=== PATIENT | female | born 1985 | race Hispanic/Latino ===

== ENCOUNTER 2019-02-07 18:53 | Observation (INO) | payer SELFPAY ==
[2019-02-07] MEDS ORDERED: ONDANSETRON 4 MG/2 ML VIAL ONE (19:42)
[2019-02-07] MEDS ORDERED: NA CHLORIDE 0.9% 1,000 ML ONE ×2 (19:42→23:44)
[2019-02-07] MEDS ORDERED: FENTANYL CITR 100 MCG/2 ML ONE ×2 (19:42→23:38)
[2019-02-07 19:48] LABS: ALT/SGPT 72 U/L (12-78); AST/SGOT 40 U/L (15-37); Albumin 3.9 g/dL (3.4-5.0); Alkaline Phosphatase 95 U/L (45-117); BUN Blood Urea Nitrogen 8 mg/dL (7-18); Bicarbonate 27 mmol/L (21-32); Bilirubin Direct 0.2 mg/dL (0-0.2); Bilirubin Total 0.6 mg/dL (0.2-1.0); Glucose Level 94 mg/dL (74-106); Lipase 139 U/L (73-393); Potassium 3.6 mmol/L (3.5-5.1); Protein, Total 8.4 g/dL (6.4-8.2); Sodium Level 139 mmol/L (136-145)
[2019-02-07 20:00] LABS: Absolute Lymphocytes (CBC) 0.9 K/uL (0.7-4.9); Basophils % 0.4 % (0-1.3); Eosinophils % 0.9 % (0-4.4); Hematocrit 42.8 % (36.0-45.0); Lymphocytes % 13.4 % (15.3-44.8); MPV 9.2 fL (7.6-11.3); Monocytes % 6.7 % (3.3-12.3); RBC Red Blood Cell Count 4.95 M/uL (3.86-4.86)
[2019-02-07 20:15] LABS: Protime INR 1.01
[2019-02-07 20:15] LABS: Urine Amorphous Sediment 3+ /HPF (NONE SEEN); Urine Bacteria 20-50 /HPF (<20); Urine Culture Reflex Order REFLEXED; Urine Mucus 3+ /HPF (NONE SEEN); Urine RBC 20-50 /HPF (NONE SEEN)
[2019-02-07 20:21] LABS: Urine Blood 2+ (NEG); Urine Glucose NEGATIVE (NEG); Urine Protein NEGATIVE (NEG); Urine Specific Gravity 1.025 (1.005-1.030); Urine pH 5.5 (5.0-7.0)
--- NOTE | 2019-02-07 20:53 | RAD REPORT ---
EXAM DESCRIPTION: US - Transvaginal OB - 02/07/2019 8:32 pm CLINICAL HISTORY: Pelvic pain, uncertain status COMPARISON: None. FINDINGS: Endovaginal sonography was performed and shows no gestational sac or sac remnant within th e uterus. No hematoma, polyp, mass or other endometrial abnormality. No myometrial mass. A 16 millimeter thin-walled anechoic left ovarian cyst is present. There is a more complex 2.5 centim eter mass showing a peripheral echogenic rim and 15 millimeter hypoechoic focus. Right ovary is normal size. Normal blood flow seen in the ovarian stroma. Small quantity of free fluid in the cul de sac. No blood in the cul-de-sac. IMPRESSION: No intrauterine gestational sac or sac remnant. No hematoma or other endometrial abnorma lity. A complex left ovarian mixed solid and cystic mass is present. Ectopic is not excluded base d on sonographic findings and available history. No beta HCG values were available to time of this di ctation.
--- NOTE | 2019-02-07 22:30 | ER ---
Nurse's Notes [facility] Name: Nithya Cantrell Age: 33 yrs Sex: Female : 1985 Arrival Date: 02/07/2019 Time: 18:54 Bed 7 Private MD: Diagnosis: Ectopic Presentation: 02/07 18:55 Presenting complaint: EMS states: Sever lower abdominal pain that began this morning, ph also c/o nausea and difficulty urinating, reports abnormal menses w/ a late period last month and vaginal spotting since, hx of tubal. Transition of care: patient was not received from another setting of care. Onset of symptoms was February 07, 2019. Risk Assessment: Do you want to hurt yourself or someone else? Patient reports no desire to harm self or others. Initial Sepsis Screen: Does the patient meet any 2 criteria? No. Patient's initial sepsis screen is negative. Does the patient have a suspected source of infection? Yes: Dysuria/Frequency/Urgency/UTI. Care prior to arrival: None. 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 - Social history:: Smoking status: Patient/guardian denies using tobacco. - Ebola Screening: : No symptoms or risks identified at this time. Screenin:50 Abuse screen: Denies threats or abuse. Denies injuries from another. Nutritional lp1 screening: No deficits noted. Tuberculosis screening: No symptoms or risk factors identified. Fall Risk None identified. Assessment: 19:15 General: Appears uncomfortable, Behavior is appropriate for age. Pain: Complains of lp1 pain in suprapubic area Pain currently is 9 out of 10 on a pain scale. Quality of pain is described as sharp. Neuro: Level of Consciousness is awake, alert, obeys commands, Oriented to person, place, time, situation. Cardiovascular: Patient's skin is warm and dry. Respiratory: Respiratory effort is even, unlabored. GI: Abdomen is non-distended, Bowel sounds present X 4 quads. Abdomen is tender to palpation in suprapubic area. : Reports vaginal bleeding that is spotty. EENT: No signs and/or symptoms were reported regarding the EENT system. Derm: Skin is pink, warm \T\ dry. Musculoskeletal: Circulation, motion, and sensation intact. 20:15 Reassessment: Patient states pain relief at this time; Aware of waiting for ultrasound lp1 results. 21:45 Reassessment: Patient states pain to lower abdomen returning at this time; Verbal order lp1 from Bruce Teague for Fentanyl 25mg IV at this time. 22:30 Reassessment: Dr. Pathak at bedside to discuss care with patient; patient demonstrates lp1 understanding of plan for surgery. 22:45 Reassessment: Dr. Pathak at bedside to update patient's on plan of care. lp1 23:26 Reassessment: Unsuccessful attempt at Santos catheter insertion; Surgery team at lp1 bedside, states will insert santos in OR. Vital Signs: 18:57 BP 117 / 92; Pulse 90; Resp 20; Temp 98.1; Pulse Ox 99% on R/A; Weight 63.5 kg; Pain ph 8/10; 19:30 BP 112 / 82; Pulse 95; Resp 18; Pulse Ox 98% on R/A; lp1 20:30 BP 103 / 72; Pulse 89; Resp 18; Pulse Ox 100% on R/A; lp1 21:00 BP 102 / 58; Pulse 91; Resp 16; Pulse Ox 100% on R/A; lp1 22:00 BP 107 / 73; Pulse 82; Resp 16; Pulse Ox 97% on R/A; Pain 8/10; lp1 23:00 BP 101 / 73; Pulse 91; Resp 16; Temp 99.1(O); Pulse Ox 100% on R/A; lp1 ED Course: 18:54 Patient arrived in ED. ph 18:55 Nicolas Teague PA is PHCP. cp 18:55 Henry Ring MD is Attending Physician. cp 18:57 Triage completed. ph 18:59 Arm band placed on Patient placed in an exam room, on a stretcher. ph 19:07 Carla Castorena, GURDEEP is Primary Nurse. lp1 19:15 Inserted saline lock: 20 gauge in right antecubital area, using aseptic technique. lp1 Blood collected. 19:50 Patient has correct armband on for positive identification. Placed in gown. Call light lp1 in reach. Pulse ox on. NIBP on. 20:32 US Transvaginal Ob In Process Unspecified. EDMS 22:30 Dranell Pathak MD is Hospitalizing Provider. cp 22:59 Surgical consent explained by physician, signed by patient. lp1 22:59 No provider procedures requiring assistance completed. lp1 23:26 Patient admitted, IV remains in place. lp1 Administered Medications: 19:30 Drug: NS 0.9% 1000 ml Route: IV; Rate: 1 bolus; Site: right antecubital; lp1 21:00 Follow up: IV Status: Completed infusion; IV Intake: 1000ml lp1 19:30 Drug: Zofran 4 mg Route: IVP; Site: right antecubital; lp1 20:15 Follow up: Response: Nausea is decreased lp1 19:30 Drug: fentaNYL (PF) 25 mcg Route: IVP; Site: right antecubital; lp1 20:15 Follow up: Response: Pain is decreased lp1 22:00 Drug: fentaNYL (PF) 25 mcg Route: IVP; Site: right antecubital; lp1 23:02 Follow up: Response: Pain is decreased lp1 23:24 Drug: Ancef 1 grams Route: IVPB; Infused Over: 5 mins; Site: right antecubital; lp1 23:29 Follow up: Response: Medication administered at discharge.; IV Status: Completed lp1 infusion; IV Intake: 10ml Intake: 21:00 IV: 1000ml; Total: 1000ml. lp1 23:29 IV: 10ml; Total: 1010ml. lp1 Outcome: 22:30 Decision to Hospitalize by Provider. cp 23:27 Admitted to OR accompanied by nurse, via stretcher, with chart, Report called to lp1 Candelaria Kelsey RN 23:27 Condition: stable 23:27 Instructed on the need for admit. 23:29 Patient left the ED. lp1 Signatures: Dispatcher [employer] EDMS Carla Castorena RN RN lp1 Eda Guzman RN RN Nicolas Houser, PA PA cp
--- NOTE | 2019-02-07 22:31 | EDPHYS ---
Physician Documentation [facility] Name: Nithya Cantrell Age: 33 yrs Sex: Female : 1985 Arrival Date: 02/07/2019 Time: 18:54 Bed 7 Private MD: ED Physician Henry Ring HPI: 02/07 19:03 This 33 yrs old Female presents to ER via EMS with complaints of Abdominal Pain. cp 19:03 The patient presents with abdominal pain in the lower abdomen. Onset: The cp symptoms/episode began/occurred 2 hour(s) ago. The symptoms do not radiate. Associated signs and symptoms: Pertinent positives: bilateral flank pain. 19:03 Severity of pain: in the emergency department the pain is unchanged despite home cp interventions. 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 - Social history:: Smoking status: Patient/guardian denies using tobacco. - Ebola Screening: : No symptoms or risks identified at this time. ROS: 19:10 Constitutional: Negative for body aches, chills, fever, poor PO intake. cp 19:10 Eyes: Negative for injury, pain, redness, and discharge. cp 19:10 ENT: Negative for drainage from ear(s), ear pain, sore throat, difficulty swallowing, difficulty handling secretions. 19:10 Cardiovascular: Negative for chest pain, orthopnea, palpitations. 19:10 Respiratory: Negative for cough, shortness of breath, wheezing. 19:10 Abdomen/GI: Positive for abdominal pain, nausea, of the right lower quadrant and left lower quadrant, Negative for vomiting, diarrhea, constipation. 19:10 Back: Positive for flank pain, bilaterally. 19:10 : Positive for intermittent vaginal spotting, Negative for urinary symptoms. 19:10 Skin: Negative for cellulitis, rash. 19:10 Neuro: Negative for altered mental status, dizziness, headache, weakness. 19:10 All other systems are negative. Exam: 19:45 Head/Face: Normocephalic, atraumatic. cp 19:45 Constitutional: The patient appears in no acute distress, alert, awake, non-toxic, well developed, well nourished, in obvious pain, uncomfortable. 19:45 Eyes: Periorbital structures: appear normal, Conjunctiva: normal, no exudate, no injection, Sclera: no appreciated abnormality, Lids and lashes: appear normal, bilaterally. 19:45 ENT: External ear(s): are unremarkable, Nose: is normal, Mouth: Lips: moist, Oral mucosa: pink and intact, moist, Posterior pharynx: is normal, airway is patent, no erythema, no exudate. 19:45 Chest/axilla: Inspection: normal, Palpation: is normal, no crepitus, no tenderness. cp 19:45 Cardiovascular: Rate: normal, Rhythm: regular, Edema: is not appreciated, JVD: is not appreciated. 19:45 Respiratory: the patient does not display signs of respiratory distress, Respirations: normal, no use of accessory muscles, no retractions, no splinting, no tachypnea, labored breathing, is not present, Breath sounds: are clear throughout, no decreased breath sounds, no stridor, no wheezing. 19:45 Abdomen/GI: Inspection: distension, that is mild, Bowel sounds: active, all quadrants, Palpation: soft, in all quadrants, severe abdominal tenderness, in the right lower quadrant and left lower quadrant, rebound tenderness, is not appreciated, voluntary guarding, is elicited in the right lower quadrant and left lower quadrant. 19:45 Back: pain, that is moderate, of the mid back area, ROM is painful. 19:45 Skin: no rash present. 19:45 Neuro: Orientation: to person, place \T\ time. Mentation: is normal, Cerebellar function: is grossly normal, Motor: moves all fours, strength is normal, Sensation: is normal. Vital Signs: 18:57 BP 117 / 92; Pulse 90; Resp 20; Temp 98.1; Pulse Ox 99% on R/A; Weight 63.5 kg; Pain ph 8/10; 19:30 BP 112 / 82; Pulse 95; Resp 18; Pulse Ox 98% on R/A; lp1 20:30 BP 103 / 72; Pulse 89; Resp 18; Pulse Ox 100% on R/A; lp1 21:00 BP 102 / 58; Pulse 91; Resp 16; Pulse Ox 100% on R/A; lp1 22:00 BP 107 / 73; Pulse 82; Resp 16; Pulse Ox 97% on R/A; Pain 8/10; lp1 23:00 BP 101 / 73; Pulse 91; Resp 16; Temp 99.1(O); Pulse Ox 100% on R/A; lp1 MDM: 18:59 Patient medically screened. 21:00 Data reviewed: vital signs, nurses notes, lab test result(s), radiologic studies, cp ultrasound. 21:00 Counseling: I had a detailed discussion with the patient and/or guardian regarding: the cp historical points, exam findings, and any diagnostic results supporting the discharge/admit diagnosis, lab results, radiology results. Response to treatment: the patient's symptoms have markedly improved after treatment. 21:02 Physician consultation: Darnell Pathak MD was called at 21:02, left message on voicemail. 21:33 Physician consultation: Darnell Pathak MD was called at 21:33, was contacted at 21:33, discussed patient with physician and concern for left ectopic . Requests attempt to contact DR Manzano. 22:07 Physician consultation: Darnell Pathak MD was called at 22:07, was contacted at 22:07, and will see patient in ED, shortly. 02/07 19:02 Order name: Basic Metabolic Panel; Complete Time: 20:31 02/07 19:02 Order name: CBC with Diff; Complete Time: 20:31 02/07 19:02 Order name: Creatinine for Radiology; Complete Time: 20:31 02/07 19:02 Order name: Hepatic Function; Complete Time: 20:31 02/07 19:02 Order name: Lipase; Complete Time: 20:31 02/07 19:02 Order name: Urine Microscopic Only; Complete Time: 20:31 02/07 20:46 Interpretation: Normal except: UWBC 20-50; URBC 20-50; UBACT 20-50; SQEPI 10-20; MUCUS cp 3+; AMORPH 3+. 02/07 19:17 Order name: Urine Dipstick--Ancillary (enter results); Complete Time: 20:31 2 02/07 19:17 Order name: Urine --Ancillary (enter results); Complete Time: 20:31 [facility] 02/07 19:23 Order name: Test, Serum; Complete Time: 20:31 dm5 02/07 19:24 Order name: HCG-Quantitative; Complete Time: 20:57 cp 02/07 20:59 Interpretation: Reviewed. cp 02/07 19:29 Order name: PT-INR; Complete Time: 20:31 cp 02/07 19:29 Order name: Ptt, Activated; Complete Time: 20:31 cp 02/07 19:42 Order name: Abo/rh Typing; Complete Time: 20:45 mw2 02/07 20:46 Interpretation: Reviewed. cp 02/07 19:02 Order name: IV Saline Lock; Complete Time: 19:44 cp 02/07 19:02 Order name: Labs collected and sent; Complete Time: 19:44 cp 02/07 19:02 Order name: Urine Dipstick-Ancillary (obtain specimen); Complete Time: 19:44 cp 02/07 19:02 Order name: Urine Test (obtain specimen); Complete Time: 19:44 cp 02/07 19:29 Order name: US Transvaginal Ob; Complete Time: 20:57 cp 02/07 20:17 Order name: Urine Culture EDCO 02/07 21:48 Order name: consult Order-Dannielle Manzano MD (Gynecology, Obstetrics/Gynecology); cp Complete Time: 22:06 02/07 22:38 Order name: Type And Screen cp 02/07 22:38 Order name: NPO; Complete Time: 23:02 cp Administered Medications: 19:30 Drug: NS 0.9% 1000 ml Route: IV; Rate: 1 bolus; Site: right antecubital; lp1 21:00 Follow up: IV Status: Completed infusion; IV Intake: 1000ml lp1 19:30 Drug: Zofran 4 mg Route: IVP; Site: right antecubital; lp1 20:15 Follow up: Response: Nausea is decreased lp1 19:30 Drug: fentaNYL (PF) 25 mcg Route: IVP; Site: right antecubital; lp1 20:15 Follow up: Response: Pain is decreased lp1 22:00 Drug: fentaNYL (PF) 25 mcg Route: IVP; Site: right antecubital; lp1 23:02 Follow up: Response: Pain is decreased lp1 23:24 Drug: Ancef 1 grams Route: IVPB; Infused Over: 5 mins; Site: right antecubital; lp1 23:29 Follow up: Response: Medication administered at discharge.; IV Status: Completed lp1 infusion; IV Intake: 10ml Disposition: 02/08 07:37 Co-signature as Attending Physician, Henry Ring MD. rn Disposition: 02/07/19 22:30 Hospitalization ordered by Darnell Pathak for Observation. Preliminary diagnosis is Ectopic . - [facility]. - Status is Observation. lp1 - Condition is Stable. - Problem is new. - Symptoms have improved. UTI on Admission? No Signatures: Dispatcher [employer] EDCO Henry Ring MD MD rn Pena, Laura, RN RN lp1 Eda Guzman RN RN ph Zahida, Nicolas, PA PA cp Corrections: (The following items were deleted from the chart) 02/07 23:29 22:30 Hospitalization Ordered by Darnell Pathak MD for Observation. Preliminary lp1 diagnosis is Ectopic . Bed requested [facility]. Status is Observation. Condition is Stable. Problem is new. Symptoms have improved. UTI on Admission? No. cp
[2019-02-07] MEDS ORDERED: CEFAZOLIN/SWI 1gm 1 GM/10 ML SYR ONE (23:26)
[2019-02-07] MEDS ORDERED: SUCCINYLCHOLINE 20 MG/ML (10 ML) IV ONE (23:32)
[2019-02-07] MEDS ORDERED: ROCURONIUM 50 MG/5 ML VIAL IV ONE (23:38)
[2019-02-07] MEDS ORDERED: MIDAZOLAM HCL 2 MG/2 ML INJ ONE (23:38)
[2019-02-07] MEDS ORDERED: PROPOFOL 200 MG/20 ML VIAL IV ONE (23:38)
[2019-02-07] MEDS ORDERED: BUPIVACAINE 0.5% PF 10 ML VIAL ONE (23:43)
[2019-02-08] MEDS ORDERED: NEOSTIGMINE 1 MG/ML -10 ML VIAL ONE (00:31)
[2019-02-08] MEDS ORDERED: GLYCOPYRROLATE 0.2 MG/ML SYR ONE ×2 (00:31)
[2019-02-08] MEDS ORDERED: ONDANSETRON HCL 40 MG/20 ML VIAL ONE (00:52)
[2019-02-08] MEDS ORDERED: KETOROLAC 30 MG/ML INJ ONE (00:54)
[2019-02-08] MEDS ORDERED: Ringers Lactate 1,000 ML IV ONE (00:54)
[2019-02-08] MEDS: MORPHINE 4 MG/ML SYR ONE ×2 (00:55→01:05)
[2019-02-08] MEDS ORDERED: PROMETHAZINE 25 MG/ML VIAL ONE (01:12)
[2019-02-08] MEDS ORDERED: MEPERIDINE HCL 25 MG/0.5 ML IV PRN (01:33)
[2019-02-08] MEDS ORDERED: PROMETHAZINE 25 MG/ML VIAL IM PRN (01:34)
--- NOTE | 2019-02-08 03:21 | PREOPHP ---
Date of Admission: 02/07/2019 History Of Present Illness: Nithya Cantrell is a 33-year-old female, 2, para 2, with tubal li gation apparently several years ago. Now comes into the emergency room with left tubal ectopic pregn kailash and hemoperitoneum. H and H are stable at this point, but the patient's symptoms are worsening and her belly is getting somewhat protuberant. I think the bleeding is intensifying. Quantitative l evel was 7000. Ultrasound demonstrates a left tubal complex about 2.5 cm with a smaller ovarian cyst on that side. We are preparing for surgery at this time. There is no way that methotrexate can be used in this situation. The patient has a history of asthma, but she has no asthma symptoms and her lungs sound quite clear. She has no allergies. She has not eaten since this morning. Her t ook the children home, but I have communicated with him on the phone and he is headed back to the [facility]. Through an nocturnist physician, the patient has been advised of the situation and she agrees for surg keiko. We talked about infection, blood loss, anesthetic complications, injury to internal organs, ane sthetic complications, but the patient knows fully well this does not constitute all the possible pro blems that could occur during or following the surgery. Family History: Noncontributory. Allergies: SHE HAS NO ALLERGIES. Social History: She does not smoke, but does have asthma, but has not had any problems today and as stated, is not wheezing. Physical Examination: Vital Signs: Stable. HEENT: Clear. Lungs: Clear. Heart: Without murmurs. Breasts: Not examined. Abdomen: Tender in all quadrants, especially the lower quadrants on both sides with some rebound. Extremities: Clear without edema, cyanosis, or clubbing. Pelvic: Exam was not done. Diagnosis: Ruptured left tubal ectopic with hemoperitoneum. Surgical crew has been alerte d and we will proceed expeditiously with laparoscopic removal of her tubal mass, if not, exploratory laparotomy will be performed and the patient is aware of this. PATI/LUCIAN Voice ID: [id number]
[2019-02-08] MEDS ORDERED: D5LR 1,000 ML IV SCH (04:00)
--- NOTE | 2019-02-08 05:24 | OP ---
Surgeon: Darnell Pathak MD Anesthesiologist: Dr. Granados. Full preoperative counseling concerning procedure and possible complications, including infection, bl ood loss, anesthetic complications, injury to bladder, bowel, ureter, postoperative complications, cl ots in legs, pneumonia. The patient knows fully well this does not constitute all the possible probl ems that could occur during or after surgery and knows that tubal ectopic could recur on th e same side or opposite side in the future. A 1 g of Ancef for preoperative coverage. The patient h ad a history of asthma, but no recent asthma attacks and her lungs are clear. Preoperative Diagnosis: Preoperatively rupture tubal ectopic . Postoperative Diagnosis: Preoperatively rupture tubal ectopic . Development System Efficiency Manager Surgeon: DR. Carrillo. Anesthesia: General anesthesia endotracheal intubation. Description Of Procedure: After adequate general anesthesia, the patient was prepped and draped in u sual sterile manner, placed in dorsal supine position. A trocar and visualizing instruments were tanya honey. The patient was noted to have ruptured tubal ectopic involving the left tube. The ov andrés was clear, had a small cyst of no significance. The LigaSure instrument was used to completely r emove the left tube. Irrigation was then performed. No further bleeding was seen. The upper abdome n was visualized. Irrigation was performed to remove the clot and blood that was noted around the li monae. Thorough irrigation again performed in the pelvis. Estimated blood loss during the procedure 2 50-300 cc of clot blood that was already present. At this point, all instruments were removed. The incisions were closed with pily. The patient tolerated all procedures well, transferred back to [facility] recovery room in good condition. Final Diagnoses: Ruptured tubal ectopic , hemoperitoneum involving the left tube, diagnosti c laparoscopy with left salpingectomy performed. PATI/LUCIAN Voice ID: [id number] Report ID: [id number]
[2019-02-08] MEDS ORDERED: CEFAZOLIN/NS 1gm 1 GM/50 ML BAG IVPB ONE (06:00)
[2019-02-08 06:11] LABS: Basophils % 0.4 % (0-1.3); Eosinophils % 0.2 % (0-4.4); Lymphocytes % 17.8 % (15.3-44.8); MPV 8.8 fL (7.6-11.3); Monocytes % 6.7 % (3.3-12.3); RBC Red Blood Cell Count 3.92 M/uL (3.86-4.86)
[2019-02-08] MEDS ORDERED: CEFAZOLIN/SWI 1gm 1 GM/10 ML SYR ONE (06:40)
[2019-02-08] MEDS ORDERED: KETOROLAC 30 MG/ML INJ IV PRN (07:21)
[2019-02-08] MEDS ORDERED: Ringers Lactate 1,000 ML IV SCH (08:00)
[2019-02-08] MEDS ORDERED: IBUPROFEN 200 MG TAB PO ONE (08:07)
[2019-02-08] MEDS ORDERED: IBUPROFEN 400 MG TAB PO PRN (08:23)
--- NOTE | 2019-02-08 21:34 | DS ---
Date of Discharge: 02/08/2019 This is a 33-year-old female who underwent diagnostic laparoscopy with left salpingectomy for rupture d tubal ectopic , hemoperitoneum. , she is afebrile. Pulse is normal. Blood pre ssures have been running low but they have been running low since she was admitted. She says she fee ls much better. She is having some mild discomfort from the abdominal incisions. Hematocrit on admi ssion was 42 but I think that showed hemoconcentration, is now 34. We will get a fingerstick hematoc rit this morning to make sure it is stable. She has no shoulder or neck pain. We will get her to am bulate today and if she does well probably send her home later this morning or early afternoon. She is to call my office on Sunday for followup to report any temperature elevation of 100 degrees or gre ater, severe pain, heavy bleeding, or any other type of abnormalities. She is Rh positive therefore will not need RhoGAM. She will be dismissed with tramadol for analgesia. Final Diagnoses: Ruptured tubal ectopic with hemoperitoneum, left side; diagnostic laparoscopy, left salpingectomy. PATI/LUCIAN Voice ID: [id number] Report ID: [id number]
== END 2019-02-08 13:30 | disposition home health service (06) ==
LOC: ER 18:53 → 2ND-WC 23:46
PROVIDERS: ADMIT Specialist; ATTEND Specialist
PROC: 0UT64ZZ Resection of Left Fallopian Tube, Percutaneous Endoscopic Approach (ICD-10-PCS; 2019-02-07)
PROC: 10T24ZZ Resection of Products of Conception, Ectopic, Percutaneous Endoscopic Approach (ICD-10-PCS; principal; 2019-02-07 23:08)
DX: O00.102 Left tubal pregnancy without intrauterine pregnancy (principal); O34.80 Maternal care for other abnormalities of pelvic organs, unspecified trimester; N83.202 Unspecified ovarian cyst, left side; Z3A.00 Weeks of gestation of pregnancy not specified
CPT/HCPCS: 36415; 76817; 80048; 80076; 81003; 81015; 81025; 83690; 84702; 84703; 85014; 85025; 85610; 85730; 86850; 86900; 86901; 87086; 87088; 88305; 96361; 96374; 96375; 99285; G0378; J0330; J0690; J2175; J2250; J2405; J2550; J2704; J2710; J3010; J7030

== ENCOUNTER 2019-03-03 16:42 | Emergency (ER) | payer SELFPAY ==
--- OUTSIDE RECORDS SUMMARY | 2019-03-03 16:44 | XMS REPORT ---
:1985 [facility] Address [address] [place] [address] Care Team Providers Name Role Phone Unavailable Unavailable Unavailable Problems This patient has no known problems. Allergies, Adverse Reactions, Alerts This patient has no known allergies or adverse reactions. Medications This patient has no known medications.
[2019-03-03] MEDS ORDERED: ONDANSETRON 4 MG/2 ML VIAL ONE ×2 (18:26→23:00)
[2019-03-03] MEDS ORDERED: MORPHINE 4 MG/ML SYR ONE (18:26)
[2019-03-03 18:40] LABS: Absolute Lymphocytes (CBC) 1.6 K/uL (0.7-4.9); Basophils % 0.7 % (0-1.3); Hematocrit 41.7 % (36.0-45.0); MPV 9.6 fL (7.6-11.3); RBC Red Blood Cell Count 4.87 M/uL (3.86-4.86)
[2019-03-03 19:34] LABS: BUN Blood Urea Nitrogen 7 mg/dL (7-18); Bicarbonate 27 mmol/L (21-32); Glucose Level 92 mg/dL (74-106); Potassium 4.1 mmol/L (3.5-5.1); Sodium Level 140 mmol/L (136-145)
[2019-03-03] MEDS ORDERED: NA CHLORIDE 0.9% 1,000 ML ONE (19:43)
[2019-03-03 20:28] LABS: Urine Blood 2+ (NEG); Urine Glucose NEGATIVE (NEG); Urine Protein NEGATIVE (NEG); Urine Specific Gravity 1.015 (1.005-1.030)
--- NOTE | 2019-03-03 22:50 | EDPHYS ---
Physician Documentation [facility] Name: Nithya Cantrell Age: 33 yrs Sex: Female : 1985 Arrival Date: 03/03/2019 Time: 16:46 Bed 25 Private MD: ED Physician Jules West HPI: 03/03 21:42 This 33 yrs old Female presents to ER via Ambulatory with complaints of kb Surgical site infected. 21:46 The patient presents with abdominal pain. Onset: The symptoms/episode began/occurred kb today. The symptoms do not radiate. Associated signs and symptoms: none. The symptoms are described as constant. Modifying factors: The symptoms are alleviated by nothing, the symptoms are aggravated by pressure. Severity of pain: At its worst the pain was moderate in the emergency department the pain is unchanged. The patient has not experienced similar symptoms in the past. The patient has been recently seen by a physician:. Pt reports she had a surgical procedure done due to ectopic 3-4 weeks ago. STates today she has had drainage from incision site and pain.. Historical: - Allergies: 16:57 No Known Allergies; hb - PMHx: 18:44 Asthma; mg2 - PSHx: 18:44 laparoscopic abdominal surgery; mg2 - Immunization history:: Flu vaccine status is unknown. - Social history:: Smoking status: unknown. - Ebola Screening: : No symptoms or risks identified at this time. ROS: 21:43 Constitutional: Negative for fever, chills, and weight loss, ENT: Negative for injury, kb pain, and discharge, Neck: Negative for injury, pain, and swelling, Cardiovascular: Negative for chest pain, palpitations, and edema, Respiratory: Negative for shortness of breath, cough, wheezing, and pleuritic chest pain, Back: Negative for injury and pain, : Negative for injury, bleeding, discharge, and swelling, MS/Extremity: Negative for injury and deformity, Neuro: Negative for headache, weakness, numbness, tingling, and seizure. 21:43 Abdomen/GI: Positive for abdominal pain. 21:43 Skin: Positive for drainage from surgical incision. Exam: 21:43 Constitutional: This is a well developed, well nourished patient who is awake, alert, kb and in no acute distress. Head/Face: Normocephalic, atraumatic. ENT: Nares patent. No nasal discharge, no septal abnormalities noted. Tympanic membranes are normal and external auditory canals are clear. Oropharynx with no redness, swelling, or masses, exudates, or evidence of obstruction, uvula midline. Mucous membranes moist. Neck: Trachea midline, no thyromegaly or masses palpated, and no cervical lymphadenopathy. Supple, full range of motion without nuchal rigidity, or vertebral point tenderness. No Meningismus. Chest/axilla: Normal chest wall appearance and motion. Nontender with no deformity. No lesions are appreciated. Cardiovascular: Regular rate and rhythm with a normal S1 and S2. No gallops, murmurs, or rubs. Normal PMI, no JVD. No pulse deficits. Respiratory: Lungs have equal breath sounds bilaterally, clear to auscultation and percussion. No rales, rhonchi or wheezes noted. No increased work of breathing, no retractions or nasal flaring. Back: No spinal tenderness. No costovertebral tenderness. Full range of motion. MS/ Extremity: Pulses equal, no cyanosis. Neurovascular intact. Full, normal range of motion. Neuro: Awake and alert, GCS 15, oriented to person, place, time, and situation. Cranial nerves II-XII grossly intact. Motor strength 5/5 in all extremities. Sensory grossly intact. Cerebellar exam normal. Normal gait. 21:43 Abdomen/GI: Inspection: abdomen appears normal, Bowel sounds: normal, in all quadrants, Palpation: soft, in all quadrants, moderate abdominal tenderness, in the umbilical area, around surgical incision and bilateral lower quadrants. 21:43 Skin: surgical incision with a pen-tip sized opening, with drainage on bandaid. Vital Signs: 16:57 BP 110 / 70; Pulse 94; Resp 16; Temp 98.2; Pulse Ox 100% on R/A; Weight 63.5 kg; Height hb 5 ft. (152.40 cm); Pain 5/10; 19:10 BP 115 / 70; Pulse 90; Resp 17; Temp 98; Pulse Ox 100% ; Pain 0/10; rr5 20:20 BP 102 / 69; Pulse 88; Resp 17; Pulse Ox 99% on R/A; rr5 21:00 BP 116 / 71; Pulse 84; Resp 18; Pulse Ox 100% ; rr5 22:00 BP 113 / 79; Pulse 85; Resp 15; Pulse Ox 100% on R/A; rr5 23:00 BP 116 / 70; Pulse 79; Resp 17; Temp 98.1(T); Pulse Ox 99% ; rr5 16:57 Body Mass Index 27.34 (63.50 kg, 152.40 cm) hb MDM: 18:13 Patient medically screened. kb 21:43 Data reviewed: vital signs, nurses notes. Data interpreted: Pulse oximetry: on room air kb is 99 %. Interpretation: normal. Counseling: I had a detailed discussion with the patient and/or guardian regarding: the historical points, exam findings, and any diagnostic results supporting the discharge/admit diagnosis, lab results, radiology results, the need for outpatient follow up, an OB/Gyne specialist, to return to the emergency department if symptoms worsen or persist or if there are any questions or concerns that arise at home. 03/03 18:16 Order name: Basic Metabolic Panel; Complete Time: 19:36 kb 03/03 18:16 Order name: CBC with Diff; Complete Time: 18:43 kb 03/03 20:20 Order name: Urine Dipstick--Ancillary (enter results) [facility] 03/03 20:20 Order name: Urine --Ancillary (enter results) [facility] 03/03 20:50 Order name: CT Abd/Pelvis - IV Contrast Only kb 03/03 18:16 Order name: IV Saline Lock; Complete Time: 18:37 kb 03/03 18:16 Order name: Labs collected and sent; Complete Time: 18:37 kb 03/03 18:16 Order name: Urine Dipstick-Ancillary (obtain specimen); Complete Time: 20:11 kb 03/03 18:16 Order name: Urine Test (obtain specimen); Complete Time: 20:11 kb Administered Medications: 18:39 Drug: morphine 4 mg Route: IVP; Site: left antecubital; mg2 19:40 Follow up: Response: No adverse reaction; RASS: Alert and Calm (0) rr5 18:39 Drug: Zofran 4 mg Route: IVP; Site: left antecubital; mg2 19:40 Follow up: Response: No adverse reaction rr5 19:49 Drug: NS 0.9% 1000 ml Route: IV; Rate: 1 bolus; Site: left antecubital; rv 20:30 Follow up: Response: No adverse reaction; IV Status: Completed infusion; IV Intake: rr5 1000ml Disposition: 03/04 07:48 Co-signature as Attending Physician, Jules West MD I agree with the assessment and wa plan of care. Disposition: 03/03/19 22:51 Discharged to Home. Impression: Unspecified ovarian cysts. - Condition is Stable. - Discharge Instructions: Ovarian Cyst, [id number]. - Prescriptions for Zofran 4 mg Oral Tablet - take 1 tablet by ORAL route every 6 hours As needed; 20 tablet. Diclofenac Sodium 75 mg Oral Tablet, Delayed Release (E.C.) - take 1 tablet by ORAL route 2 times per day As needed; 30 tablet. - Medication Reconciliation Form, Thank You Letter, Antibiotic Education, Prescription Opioid Use form. - Follow up: Emergency Department; When: As needed; Reason: Worsening of condition. Follow up: Private Physician; When: 2 - 3 days; Reason: Recheck today's complaints, Continuance of care, Re-evaluation by your physician. Signatures: Dispatcher [employer] EDWY Rowena Park, GROCERY STORE CLERK-C GROCERY STORE CLERK-CkTarny Posadas, RN Jules Darling MD MD wa Gardose, Michele, RN GURDEEP [facility] Donaldo Velarde RN RN Pavan Bryna RN RN rr5 Corrections: (The following items were deleted from the chart) 03/03 23:07 22:51 03/03/2019 22:51 Discharged to Home. Impression: Unspecified ovarian cysts. rr5 Condition is Stable. Forms are Medication Reconciliation Form, Thank You Letter, Antibiotic Education, Prescription Opioid Use. Follow up: Emergency Department; When: As needed; Reason: Worsening of condition. Follow up: Private Physician; When: 2 - 3 days; Reason: Recheck today's complaints, Continuance of care, Re-evaluation by your physician. kb
--- NOTE | 2019-03-03 22:50 | ER ---
Nurse's Notes [facility] Name: Nithya Cantrell Age: 33 yrs Sex: Female : 1985 Arrival Date: 03/03/2019 Time: 16:46 Bed 25 Private MD: Diagnosis: Unspecified ovarian cysts Presentation: 03/03 16:55 Presenting complaint: Had laparoscopic surgery by Dr. Stuart 3 weeks ago, pt reports hb increased pain and drainage to surgical site today. Transition of care: patient was not received from another setting of care. Onset of symptoms was March 03, 2019. Risk Assessment: Do you want to hurt yourself or someone else? Patient reports no desire to harm self or others. Care prior to arrival: None. 16:55 Method Of Arrival: Ambulatory hb 16:55 Acuity: PIERRE 3 hb 18:42 Initial Sepsis Screen: Does the patient meet any 2 criteria? No. Patient's initial mg2 sepsis screen is negative. Does the patient have a suspected source of infection? Yes: Other: post op site infection. Historical: - Allergies: 16:57 No Known Allergies; hb - PMHx: 18:44 Asthma; mg2 - PSHx: 18:44 laparoscopic abdominal surgery; mg2 - Immunization history:: Flu vaccine status is unknown. - Social history:: Smoking status: unknown. - Ebola Screening: : No symptoms or risks identified at this time. Screenin:41 Abuse screen: Denies threats or abuse. Denies injuries from another. Nutritional mg2 screening: No deficits noted. Tuberculosis screening: No symptoms or risk factors identified. Fall Risk IV access (20 points). Assessment: 18:39 General: Appears in no apparent distress. comfortable, Behavior is calm, cooperative. mg2 Pain: Complains of pain in abdomen Pain does not radiate. Pain currently is 5 out of 10 on a pain scale. Quality of pain is described as aching, Pain began gradually, Is intermittent. Neuro: Level of Consciousness is awake, alert, obeys commands, Oriented to person, place, time, situation. Cardiovascular: Capillary refill < 3 seconds Patient's skin is warm and dry. Respiratory: Airway is patent Respiratory effort is even, unlabored, Respiratory pattern is regular, symmetrical. GI: Abdomen is post op site infection. : No signs and/or symptoms were reported regarding the genitourinary system. EENT: No signs and/or symptoms were reported regarding the EENT system. Derm: Skin is intact, is healthy with good turgor, Skin is pink, warm \T\ dry. normal. Musculoskeletal: Circulation, motion, and sensation intact. Capillary refill < 3 seconds. 19:00 General: Appears in no apparent distress. comfortable, Behavior is calm, cooperative, rr5 appropriate for age. Pain: Denies pain. Neuro: Level of Consciousness is awake, alert, obeys commands, Oriented to person, place, time, situation. Cardiovascular: Capillary refill < 3 seconds Patient's skin is warm and dry. Respiratory: Airway is patent Respiratory effort is even, unlabored, Respiratory pattern is regular, symmetrical. GI: Abdomen is round small amount of discharge reddish from post operation incision in umbilical area. 19:15 Reassessment: Patient appears in no apparent distress at this time. Patient and/or rr5 family updated on plan of care and expected duration. Pain level reassessed. Patient is alert, oriented x 3, equal unlabored respirations, skin warm/dry/pink. awaiting for urine specimen Patient denies pain at this time. Patient states feeling better. Patient states symptoms have improved. 20:23 Reassessment: Patient appears in no apparent distress at this time. Patient and/or rr5 family updated on plan of care and expected duration. Pain level reassessed. Patient is alert, oriented x 3, equal unlabored respirations, skin warm/dry/pink. Patient denies pain at this time. 21:20 Reassessment: Patient appears in no apparent distress at this time. No changes from rr5 previously documented assessment. Patient is alert, oriented x 3, equal unlabored respirations, skin warm/dry/pink. awaiting for CT result. 22:40 Reassessment: Patient appears in no apparent distress at this time. Patient and/or rr5 family updated on plan of care and expected duration. Pain level reassessed. Patient is alert, oriented x 3, equal unlabored respirations, skin warm/dry/pink. no complaints made, chatting with her pulmonary disease specialist at bedside. Patient states feeling better. Patient states symptoms have improved. 23:00 Reassessment: Patient appears in no apparent distress at this time. Patient is alert, rr5 oriented x 3, equal unlabored respirations, skin warm/dry/pink. discharge instruction given and explained to pulmonary disease specialist without complaints made. Vital Signs: 16:57 BP 110 / 70; Pulse 94; Resp 16; Temp 98.2; Pulse Ox 100% on R/A; Weight 63.5 kg; Height hb 5 ft. (152.40 cm); Pain 5/10; 19:10 BP 115 / 70; Pulse 90; Resp 17; Temp 98; Pulse Ox 100% ; Pain 0/10; rr5 20:20 BP 102 / 69; Pulse 88; Resp 17; Pulse Ox 99% on R/A; rr5 21:00 BP 116 / 71; Pulse 84; Resp 18; Pulse Ox 100% ; rr5 22:00 BP 113 / 79; Pulse 85; Resp 15; Pulse Ox 100% on R/A; rr5 23:00 BP 116 / 70; Pulse 79; Resp 17; Temp 98.1(T); Pulse Ox 99% ; rr5 16:57 Body Mass Index 27.34 (63.50 kg, 152.40 cm) hb ED Course: 16:46 Patient arrived in ED. mr 16:57 Triage completed. hb 16:57 Arm band placed on. hb 18:13 Rowena Park FNP-C is PHCP. kb 18:13 Jules West MD is Attending Physician. kb 18:30 Donaldo Velarde, GURDEEP is Primary Nurse. rv 18:41 Patient has correct armband on for positive identification. Pulse ox on. NIBP on. Door mg2 closed. Warm blanket given. 18:41 No provider procedures requiring assistance completed. Inserted saline lock: 22 gauge mg2 in left antecubital area, using aseptic technique. Blood collected. 21:[address] nj 21:23 CT Abd/Pelvis - IV Contrast Only In Process Unspecified. EDMS 23:00 IV discontinued, intact, bleeding controlled, No redness/swelling at site. Pressure rr5 dressing applied. Administered Medications: 18:39 Drug: morphine 4 mg Route: IVP; Site: left antecubital; mg2 19:40 Follow up: Response: No adverse reaction; RASS: Alert and Calm (0) rr5 18:39 Drug: Zofran 4 mg Route: IVP; Site: left antecubital; mg2 19:40 Follow up: Response: No adverse reaction rr5 19:49 Drug: NS 0.9% 1000 ml Route: IV; Rate: 1 bolus; Site: left antecubital; rv 20:30 Follow up: Response: No adverse reaction; IV Status: Completed infusion; IV Intake: rr5 1000ml Intake: 20:30 IV: 1000ml; Total: 1000ml. rr5 Outcome: 22:51 Discharge ordered by . adelaida 23:00 Discharged to home ambulatory, with family. rr5 23:00 Condition: stable 23:00 Discharge instructions given to patient, Instructed on discharge instructions, follow up and referral plans. medication usage, Demonstrated understanding of instructions, follow-up care, Prescriptions given X 2. 23:07 Patient left the ED. rr5 Signatures: Dispatcher [employer] EDMS Rowena Park, CENTRAL OFFICE SUPERVISORYumiko CENTRAL OFFICE SUPERVISOR-Josette Vazquez Heather, RN RN Marcio Monsalve Michele, RN RN mg2 Vicente, Ronaldo, RN RN rv Roque, Raymond, RN RN rr5
[2019-03-03] MEDS ORDERED: KETOROLAC 30 MG/ML INJ ONE (23:00)
--- NOTE | 2019-03-04 09:34 | RAD REPORT ---
EXAM DESCRIPTION: CT - Abdomen Pelvis W Contrast - 03/04/2019 6:16 am CLINICAL HISTORY: Abdominal pain. COMPARISON: None. TECHNIQUE: CT scan of the abdomen and pelvis was performed with IV contrast. This exam was performed according to our departmental dose-optimization program, which includes automated exposure control, adjustment of the mA and/or kV according to patient size and/or use of iterative reconstruction techn ique. FINDINGS: The lung bases are clear. No pleural or pericardial effusions. Hepatic steatosis. Gallblad dixon, spleen, pancreas, adrenal glands, and kidneys are normal. There is a 4.5 cm left ovarian cyst. No small bowel obstruction. The appendix is normal. No evidence of acute diverticulitis. No adenopath y, free fluid, or free air is identified. The aorta is normal caliber. No acute bony findings. IMPRESSION: 4.5 cm benign appearing ovarian cyst. No follow-up imaging is recommended. Reference: J Am Clarita Radiol 2013;10:[id number] Electronically signed by: Ivan Herbert MD 03/03/2019 9:52 PM CDT Due to temporary technical issues with the PACS/Fluency reporting system, reports are being signed by the in house radiologist as a courtesy to ensure prompt reporting. The interpreting radiologist is f ully responsible for the content of the report.
== END 2019-03-03 23:07 | disposition home or self-care (01) ==
LOC: ER 16:42
DX: N83.209 Unspecified ovarian cyst, unspecified side (principal); Z98.890 Other specified postprocedural states
CPT/HCPCS: 36415; 74177; 80048; 81003; 81025; 85025; 96361; 96374; 96375; 99284; J2405; J7030; Q9967

== ENCOUNTER 2023-06-05 22:17 | Emergency (ER) | payer OTHER, SELFPAY ==
--- OUTSIDE RECORDS SUMMARY | 2023-06-05 22:20 | XMS REPORT | Continuity of Care Document ---
:1985 Author Organization [facility] t Address [address] [place] [address] Care Team Providers Name Role Phone Unavailable Unavailable Unavailable Problems This patient has no known problems. Allergies, Adverse Reactions, Alerts This patient has no known allergies or adverse reactions. Medications This patient has no known medications. Procedures This patient has no known procedures. Encounters Start End Encounter Admission Attending Care Care Encounter Source Date/Time Date/Time Type Type Clinicians Facility Department ID 2022-06-06 2022-06-06 Outpatient [facility] SFA [id number] Spike 11:36:35 11:36:35 [id number] F Jorge A 2022-05-25 2022-05-25 Outpatient [facility]FA [id number] Spike 09:03:47 09:03:47 [id number] F Jorge A 2022-05-24 2022-05-24 Outpatient [facility] SFA [id number] Spike 15:58:29 15:58:29 [id number] F Jorge A Results This patient has no known results.
[2023-06-05] MEDS ORDERED: dexAMETHasone 10 MG/ML VIAL ONE (23:06)
[2023-06-05] MEDS ORDERED: IBUPROFEN 200 MG TAB PO ONE (23:07)
[2023-06-05] MEDS ORDERED: IBUPROFEN 400 MG TAB ONE (23:07)
[2023-06-05 23:55] LABS: SARS-COV-2 RT PCR NEGATIVE (NEGATIVE)
--- NOTE | 2023-06-06 00:09 | EDPHYS ---
Physician Documentation [facility] Name: Nithya Cantrell Age: 38 yrs Sex: Female : 1985 Arrival Date: 06/05/2023 Time: 22:17 Bed 19 Private MD: MARK Physician Nicolas Mcdaniel HPI: 06/06 00:06 This 38 yrs old Female presents to ER via Ambulatory with complaints of Flu kb Symptoms, Chest Tightness, Sore Throat. 00:06 states the entire family has had some sort of respiratory virus over the last kb week. States patient was the last one to contract it. Reports cough, congestion, fever and sore throat. States she has been complaining that her throat pain is making it hard to breathe. Historical: - Allergies: 06/05 22:34 No Known Allergies; cm10 - PMHx: 22:34 Asthma; cm10 - Immunization history:: Adult Immunizations unknown. - Social history:: Smoking status: Patient denies any tobacco usage or history of. ROS: 06/06 00:06 Abdomen/GI: Negative for abdominal pain, nausea, vomiting, diarrhea, and constipation, kb Constitutional: Positive for fever, ENT: Positive for rhinorrhea, sore throat, Respiratory: Positive for cough, All other systems are negative, Exam: 00:06 Constitutional: This is a well developed, well nourished patient who is awake, alert, kb and in no acute distress. Head/Face: Normocephalic, atraumatic. ENT: Moist Mucous membranes Cardiovascular: Regular rate Respiratory: Respirations even and unlabored. No increased work of breathing. Talking in full sentences Skin: Warm, dry with normal turgor. Normal color. MS/ Extremity: Pulses equal, no cyanosis. Neurovascular intact. Full, normal range of motion. Neuro: Awake and alert, GCS 15, oriented to person, place, time, and situation. Moves all extremities. Normal gait. Vital Signs: 06/05 22:32 BP 122 / 92; Pulse 106; Resp 18; Temp 97.1(TE); Pulse Ox 98% on R/A; Weight 72.57 kg; cm10 06/06 00:06 BP 117 / 87; Pulse 90; Resp 18 S; Pulse Ox 96% on R/A; as6 MDM: 06/05 22:26 Patient medically screened. kb 06/06 00:07 Differential diagnosis: flu, covid, rsv, strep, pharyngitis, uri. Data reviewed: vital kb signs, nurses notes. Historians other than the Patient: Spouse/Significant Other: . Counseling: I had a detailed discussion with the patient and/or guardian regarding the historical points, exam findings, and any diagnostic results supporting the discharge/admit diagnosis, lab results, the need for outpatient follow up, a family practitioner, to return to the emergency department if symptoms worsen or persist or if there are any questions or concerns that arise at home. 06/05 22:41 Order name: COVID-19/FLU A+B/RSV; Complete Time: 23:59 kb Administered Medications: 06/05 23:00 Drug: Dexamethasone IM 10 mg IM once Route: IM; Site: right deltoid; as6 06/06 00:45 Follow up: Response: No adverse reaction as6 06/05 23:00 Drug: Ibuprofen PO 600 mg PO once Route: PO; as6 06/06 00:45 Follow up: Response: No adverse reaction as6 Disposition Summary: 06/06/23 00:08 Discharge Ordered Notes: Location: Home kb Condition: Stable kb Diagnosis - Influenza due to identified novel influenza A virus kb Followup: kb - With: Emergency Department - When: As needed - Reason: Worsening of condition Followup: kb - With: Private Physician - When: 2 - 3 days - Reason: Recheck today's complaints, Continuance of care, Re-evaluation by your physician Discharge Instructions: - Discharge Summary Sheet kb - Influenza, Adult, [id number] kb Forms: - Medication Reconciliation Form kb - Thank You Letter kb - Antibiotic Education kb - Prescription Opioid Use kb - Patient Portal Instructions kb - Leadership Thank You Letter kb Signatures: Dispatcher [employer] Rowena Camilo, HEEL SLUGGER-C KAMARI-Israel Young, RN RN as6 Elsy Li RN RN cm10
--- NOTE | 2023-06-06 00:09 | ER ---
Nurse's Notes [facility] Name: Nithya Cantrell Age: 38 yrs Sex: Female : 1985 Arrival Date: 06/05/2023 Time: 22:17 Bed 19 Private MD: Diagnosis: Influenza due to identified novel influenza A virus Presentation: 06/05 22:32 Chief complaint: Patient states: sore throat onset Sunday. Pt reports cough, denies, cm10 nausea, vomiting and diarrhea. Coronavirus screen: Vaccine status: Patient reports receiving the 2nd dose of the covid vaccine. Client denies travel out of the [place] in the last 14 days. Ebola Screen: Patient denies travel to an Ebola-affected area in the 21 days before illness onset. No symptoms or risks identified at this time. Initial Sepsis Screen: Does the patient meet any 2 criteria? No. Patient's initial sepsis screen is negative. Does the patient have a suspected source of infection? No. Patient's initial sepsis screen is negative. Risk Assessment: Do you want to hurt yourself or someone else? Patient reports no desire to harm self or others. Onset of symptoms was June 05, 2023. 22:32 Method Of Arrival: Ambulatory cm10 22:32 Acuity: PIERRE 3 cm10 Historical: - Allergies: 22:34 No Known Allergies; cm10 - PMHx: 22:34 Asthma; cm10 - Immunization history:: Adult Immunizations unknown. - Social history:: Smoking status: Patient denies any tobacco usage or history of. Screenin:51 [facility] ED Fall Risk Assessment (Adult) Score/Fall Risk Level 0 - 2 = Low Risk. Abuse as6 screen: Denies threats or abuse. Denies injuries from another. Nutritional screening: No deficits noted. Tuberculosis screening: No symptoms or risk factors identified. Assessment: 23:00 General: Appears uncomfortable, ill, Behavior is calm, cooperative. General: Reports as6 feeling ill for fatigue for. Pain: Complains of pain in generalized Quality of pain is described as aching. Neuro: Level of Consciousness is awake, alert, obeys commands, Oriented to person, place, time, situation. Cardiovascular: Capillary refill < 3 seconds Patient's skin is warm and dry. Cardiovascular: Reports. Respiratory: Respiratory effort is even, unlabored, Respiratory pattern is regular, symmetrical. Respiratory: Reports cough that is. GI: Reports diarrhea, nausea. : No deficits noted. No signs and/or symptoms were reported regarding the genitourinary system. EENT: No deficits noted. No signs and/or symptoms were reported regarding the EENT system. Derm: Skin is intact, is healthy with good turgor. Musculoskeletal: Circulation, motion, and sensation intact. Vital Signs: 22:32 BP 122 / 92; Pulse 106; Resp 18; Temp 97.1(TE); Pulse Ox 98% on R/A; Weight 72.57 kg; cm10 06/06 00:06 BP 117 / 87; Pulse 90; Resp 18 S; Pulse Ox 96% on R/A; as6 ED Course: 06/05 22:20 Patient arrived in ED. gm2 22:26 Rowena Park FNP-C is PHCP. kb 22:26 Nicolas Mcdaniel MD is Attending Physician. kb 22:33 Triage completed. cm10 22:34 Arm band placed on Patient placed in an exam room, on a stretcher. cm10 22:46 Israel Moore, RN is Primary Nurse. as6 23:51 Bed in low position. Call light in reach. as6 06/06 00:44 Provided Education on: follow up. as6 00:44 No provider procedures requiring assistance completed. Patient did not have IV access as6 during this emergency room visit. Administered Medications: 06/05 23:00 Drug: Dexamethasone IM 10 mg IM once Route: IM; Site: right deltoid; as6 06/06 00:45 Follow up: Response: No adverse reaction as6 06/05 23:00 Drug: Ibuprofen PO 600 mg PO once Route: PO; as6 06/06 00:45 Follow up: Response: No adverse reaction as6 Medication: 06/05 23:52 VIS not applicable for this client. as6 Outcome: 06/06 00:08 Discharge ordered by . kb 00:44 Discharged to home ambulatory, with family, as6 00:44 Condition: stable 00:44 Discharge instructions given to patient, Instructed on discharge instructions, follow up and referral plans. Demonstrated understanding of instructions, follow-up care, 00:44 Patient left the ED. as6 Signatures: Rowena Park FNP-C FNP-Israel Young, RN RN as6 Elsy Li RN RN cm10 Jennifer Sethi gm2
[2023-06-06 01:22] VITALS: TEMP 97.1
[2023-06-06 01:23] VITALS: BP 117/87; O2SAT 96
== END 2023-06-06 00:44 | disposition home or self-care (01) ==
LOC: ER 22:17
DX: J10.1 Influenza due to other identified influenza virus with other respiratory manifestations (principal); Z11.52 Encounter for screening for COVID-19
CPT/HCPCS: 0241U; 96372; 99284; J1100